=== PATIENT | female | born 1975 | race Caucasian/White ===

== ENCOUNTER 2018-02-09 16:59 | Inpatient (IN) | payer MEDICARE, OTHER ==
[2018-02-09] MEDS ORDERED: GELATIN SIZE 100 SPONGE ×2 (17:01→17:02)
[2018-02-09] MEDS ORDERED: THROMBIN 5000 UNIT VIAL (17:02)
[2018-02-09] MEDS ORDERED: HEPARIN 1000 UNITS/ML 10 ML INJ (17:02)
[2018-02-09] MEDS ORDERED: CEFAZOLIN 1 GM INJ (17:07)
[2018-02-09 17:49] LABS: ADD MAN DIFF? NO
[2018-02-09 17:52] LABS: BASOPHIL # 0.1 10^3/ul (0.0-0.1); BASOPHILS % 0.7 % (0.0-2.0); EOSINOPHILS # 0.2 10^3/ul (0.0-0.5); EOSINOPHILS % 2.9 % (0.0-7.0); HEMATOCRIT 29.6 % (37.0-47.0); HEMOGLOBIN 9.7 g/dl (12.0-16.0); LYMPHOCYTES % 36.7 % (15.0-51.0); MEAN CORPUSCULAR HEMOGLOBIN 25.2 pg (29.0-33.0); MEAN CORPUSCULAR HGB CONC 32.8 g/dl (32.0-37.0); MEAN CORPUSCULAR VOLUME 76.9 fl (82.0-101.0); MONOCYTE # 0.8 10^3/ul (0.3-0.9); MONOCYTES % 9.7 % (0.0-11.0); NEUTROPHILS % 49.8 % (39.0-77.0); PLATELET COUNT 326 10^3/UL (140-415); RED BLOOD COUNT 3.85 10^6/ul (4.20-5.40); RED CELL DISTRIBUTION WIDTH 16.6 % (11.5-14.5)
[2018-02-09 18:02] LABS: HOLD TRANSMISSIONS 1
[2018-02-09 18:13] LABS: INR 1.08; PROTIME 14.1 Sec (11.9-14.9); PT RATIO 1.1
[2018-02-09 18:14] LABS: PARTIAL THROMBOPLASTIN TIME 29.5 Sec (25.0-35.0)
[2018-02-09 18:23] LABS: ALANINE AMINOTRANSFERASE 20 IU/L (13-69); ALBUMIN 4.1 g/dl (3.3-4.9); ALBUMIN/GLOBULIN RATIO 1.32; ALKALINE PHOSPHATASE 72 IU/L (42-121); ANION GAP 12 (8-16); ASPARTATE AMINO TRANSFERASE 20 IU/L (15-46); BILIRUBIN,INDIRECT 0.3 mg/dl (0-1.1); BILIRUBIN,TOTAL 0.3 mg/dl (0.2-1.3); BLOOD UREA NITROGEN 14 mg/dl (7-20); CALCIUM 9.3 mg/dl (8.4-10.2); CARBON DIOXIDE 30 mmol/L (21-31); CHLORIDE 105 mmol/L (97-110); CREATININE 0.58 mg/dl (0.44-1.00); GLUCOSE 90 mg/dl (70-220); POTASSIUM 3.6 mmol/L (3.5-5.1); SODIUM 143 mmol/L (135-144); TOTAL PROTEIN 7.2 g/dl (6.1-8.1)
== END 2018-02-09 19:02 | disposition home or self-care (01) | DRG 552 ==
LOC: REC 16:59
DX: M51.26 Other intervertebral disc displacement, lumbar region (principal); Z53.09 Procedure and treatment not carried out because of other contraindication
CPT/HCPCS: 71045; 80053; 85025; 85610; 85730; 86850; 86870; 86900; 86901; 86902; 86920; 93005

== ENCOUNTER 2018-03-12 04:15 | Emergency (ER) | payer MEDICARE, OTHER | END 2018-03-12 06:30 | disposition home or self-care (01) | LOC: FTE 04:15 | DX: M79.604 Pain in right leg (principal); G89.29 Other chronic pain; F17.210 Nicotine dependence, cigarettes, uncomplicated | CPT/HCPCS: 93971; 99284-25 ==

== ENCOUNTER 2018-03-17 12:09 | Inpatient (IN) | payer MEDICARE, OTHER ==
[2018-03-17 13:21] LABS: ADD MAN DIFF? NO
[2018-03-17 13:25] LABS: BASOPHIL # 0.1 10^3/ul (0.0-0.1); BASOPHILS % 0.6 % (0.0-2.0); EOSINOPHILS # 0.3 10^3/ul (0.0-0.5); EOSINOPHILS % 2.5 % (0.0-7.0); HEMATOCRIT 31.4 % (37.0-47.0); HEMOGLOBIN 10.1 g/dl (12.0-16.0); LYMPHOCYTES # 3.4 10^3/ul (0.8-2.9); LYMPHOCYTES % 32.4 % (15.0-51.0); MEAN CORPUSCULAR HEMOGLOBIN 25.4 pg (29.0-33.0); MEAN CORPUSCULAR HGB CONC 32.2 g/dl (32.0-37.0); MEAN CORPUSCULAR VOLUME 78.9 fl (82.0-101.0); MONOCYTE # 0.6 10^3/ul (0.3-0.9); MONOCYTES % 5.9 % (0.0-11.0); NEUTROPHILS % 58.1 % (39.0-77.0); PLATELET COUNT 321 10^3/UL (140-415); RED BLOOD COUNT 3.98 10^6/ul (4.20-5.40); RED CELL DISTRIBUTION WIDTH 16.7 % (11.5-14.5)
[2018-03-17 13:25] LABS: WHITE BLOOD COUNT 10.3 10^3/ul (4.8-10.8)
[2018-03-17] MEDS ORDERED: MIDAZOLAM 1 MG/ML 2 ML INJ (13:25)
[2018-03-17] MEDS ORDERED: HEPARIN 1000 UNITS/ML 10 ML INJ ×2 (13:27→14:22)
[2018-03-17] MEDS ORDERED: SODIUM CL BACTERIOSTATIC 30 ML INJ (13:27)
[2018-03-17 13:42] LABS: ALANINE AMINOTRANSFERASE 20 IU/L (13-69); ALBUMIN 4.3 g/dl (3.3-4.9); ALKALINE PHOSPHATASE 78 IU/L (42-121); ANION GAP 17 (8-16); ASPARTATE AMINO TRANSFERASE 20 IU/L (15-46); BILIRUBIN,INDIRECT 0.3 mg/dl (0-1.1); BILIRUBIN,TOTAL 0.3 mg/dl (0.2-1.3); CARBON DIOXIDE 25 mmol/L (21-31); CHLORIDE 105 mmol/L (97-110); GLUCOSE 78 mg/dl (70-220); TOTAL PROTEIN 7.6 g/dl (6.1-8.1)
[2018-03-17 13:45] LABS: INR 1.03; PARTIAL THROMBOPLASTIN TIME 27.4 Sec (25.0-35.0); PROTIME 13.6 Sec (11.9-14.9); PT RATIO 1.1
[2018-03-17 13:51] LABS: BLOOD UREA NITROGEN 9 mg/dl (7-20); CREATININE 0.56 mg/dl (0.44-1.00); POTASSIUM 3.3 mmol/L (3.5-5.1); SODIUM 144 mmol/L (135-144)
[2018-03-17] MEDS ORDERED: THROMBIN 5000 UNIT VIAL ×3 (13:57→14:22)
[2018-03-17] MEDS ORDERED: GELATIN SIZE 100 SPONGE (13:57)
[2018-03-17] MEDS ORDERED: PHENYLephrine (100 MCG/ML) 5ML SYG (15:11)
[2018-03-17] MEDS: CEFAZOLIN 1 GM INJ (16:13)
[2018-03-17] MEDS: THROMBIN 5000 UNIT VIAL (16:14)
[2018-03-17] MEDS: DOCUSATE SODIUM 100 MG CAP PO ×2 (16:30→21:00)
[2018-03-17] MEDS ORDERED: HYDROCODONE/APAP (5/325) TAB PO (16:30)
[2018-03-17] MEDS ORDERED: NACL 0.9% 3 ML SYG IV (16:30)
[2018-03-17] MEDS ORDERED: NALOXONE (0.4 MG/ML) INJ IV (16:30)
[2018-03-17] MEDS ORDERED: HYDROmorphONE 2 MG/ML SYG (16:57)
[2018-03-17] MEDS ORDERED: LIDOCAINE 2% (SDV) 5 ML INJ (17:07)
[2018-03-17] MEDS ORDERED: ROCURONIUM 50 MG INJ (17:07)
[2018-03-17] MEDS ORDERED: GLYCOPYRROLATE 0.4 MG INJ (17:07)
[2018-03-17] MEDS ORDERED: PROPOFOL 20 ML (17:07)
[2018-03-17] MEDS ORDERED: NEOSTIGMINE 3 MG/3 ML SYRINGE (17:07)
[2018-03-17] MEDS ORDERED: CEFAZOLIN 1 GM INJ (17:08)
[2018-03-17] MEDS: hydrALAzine 20 MG INJ IV ×3 (18:00→23:50)
[2018-03-17] MEDS: CEFAZOLIN 1 GM/50 ML (PMX) 50 ML IVPB ×2 (18:18→23:02)
[2018-03-17] MEDS: NS + KCL 20 MEQ 1,000 ML IV (18:34)
[2018-03-17] MEDS ORDERED: morphine 1 MG/ML 30 ML (PCA) IV (20:30)
[2018-03-17] MEDS: HYDROmorphONE 1 MG/ML SYG IV (23:07)
[2018-03-18] MEDS: ONDANSETRON 4 MG INJ IV ×2 (00:54→16:56)
[2018-03-18] MEDS: NS + KCL 20 MEQ 1,000 ML IV ×3 (04:00→23:00)
[2018-03-18] MEDS: hydrALAzine 20 MG INJ IV ×3 (05:01→18:32)
[2018-03-18] MEDS: CEFAZOLIN 1 GM/50 ML (PMX) 50 ML IVPB ×2 (05:02→12:07)
[2018-03-18] MEDS: HYDROmorphONE 1 MG/ML SYG IV ×5 (05:02→21:39)
[2018-03-18 05:49] LABS: HEMOGLOBIN 9.7 g/dl (12.0-16.0)
[2018-03-18 06:29] LABS: ANION GAP 14 (8-16); BLOOD UREA NITROGEN 4 mg/dl (7-20); CALCIUM 8.4 mg/dl (8.4-10.2); CARBON DIOXIDE 21 mmol/L (21-31); CHLORIDE 105 mmol/L (97-110); CREATININE 0.39 mg/dl (0.44-1.00); GLUCOSE 86 mg/dl (70-220); POTASSIUM 3.7 mmol/L (3.5-5.1); SODIUM 136 mmol/L (135-144)
[2018-03-18] MEDS: DOCUSATE SODIUM 100 MG CAP PO ×2 (09:34→21:39)
[2018-03-18] MEDS: SUMATRIPTAN 50 MG TAB PO (12:05)
[2018-03-19] MEDS: HYDROmorphONE 1 MG/ML SYG IV ×5 (01:30→18:18)
[2018-03-19] MEDS: SUMATRIPTAN 50 MG TAB PO ×2 (01:30→16:32)
[2018-03-19] MEDS: NS + KCL 20 MEQ 1,000 ML IV (01:33)
[2018-03-19] MEDS: hydrALAzine 20 MG INJ IV ×4 (03:28→18:00)
[2018-03-19] MEDS: ONDANSETRON 4 MG INJ IV ×3 (05:19→23:18)
[2018-03-19] MEDS: DOCUSATE SODIUM 100 MG CAP PO ×2 (08:54→20:51)
[2018-03-19] MEDS: ACETAMINOPHEN 500 MG TAB PO (23:18)
[2018-03-20] MEDS: HYDROmorphONE 1 MG/ML SYG IV ×4 (00:30→15:08)
[2018-03-20] MEDS: AL HYDROX/MG HYDROX/SIMETH 30 ML CUP PO (05:46)
[2018-03-20] MEDS: ONDANSETRON 4 MG INJ IV (05:50)
[2018-03-20] MEDS: hydrALAzine 20 MG INJ IV ×2 (05:52)
[2018-03-20] MEDS: DOCUSATE SODIUM 100 MG CAP PO ×2 (08:56→13:42)
[2018-03-20] MEDS: OXYCODONE/ACETAMINOPHEN (10/325) TAB PO ×2 (10:36→18:09)
[2018-03-20] MEDS: NICOTINE (14 MG/24 HR) PATCH TRANSDERM (13:41)
[2018-03-20 17:15] LABS: ADD MAN DIFF? NO
[2018-03-20 17:16] LABS: WHITE BLOOD COUNT 13.8 10^3/ul (4.8-10.8)
[2018-03-20 17:16] LABS: BASOPHILS % 0.3 % (0.0-2.0); EOSINOPHILS # 0.4 10^3/ul (0.0-0.5); EOSINOPHILS % 2.5 % (0.0-7.0); HEMATOCRIT 29.2 % (37.0-47.0); HEMOGLOBIN 9.3 g/dl (12.0-16.0); LYMPHOCYTES % 14.2 % (15.0-51.0); MEAN CORPUSCULAR HEMOGLOBIN 25.5 pg (29.0-33.0); MEAN CORPUSCULAR HGB CONC 31.8 g/dl (32.0-37.0); MEAN PLATELET VOLUME 8.9 fl (7.4-10.4); MONOCYTE # 1.4 10^3/ul (0.3-0.9); MONOCYTES % 10.3 % (0.0-11.0); NEUTROPHIL # 9.9 10^3/ul (1.6-7.5); PLATELET COUNT 263 10^3/UL (140-415); RED BLOOD COUNT 3.65 10^6/ul (4.20-5.40); RED CELL DISTRIBUTION WIDTH 16.6 % (11.5-14.5)
[2018-03-20 17:45] LABS: ANION GAP 13 (8-16); BLOOD UREA NITROGEN 9 mg/dl (7-20); CALCIUM 8.8 mg/dl (8.4-10.2); CARBON DIOXIDE 29 mmol/L (21-31); CHLORIDE 96 mmol/L (97-110); CREATININE 0.56 mg/dl (0.44-1.00); GLUCOSE 98 mg/dl (70-220); POTASSIUM 3.5 mmol/L (3.5-5.1); SODIUM 134 mmol/L (135-144)
[2018-03-20] MEDS: SUMATRIPTAN 50 MG TAB PO (18:09)
== END 2018-03-20 22:40 | disposition home or self-care (01) | DRG 459 ==
LOC: REC 12:09 → MS1 03-18 17:32 → ICU 17:34
PROC: 0SG30A0 Fusion of Lumbosacral Joint with Interbody Fusion Device, Anterior Approach, Anterior Column, Open Approach (ICD-10-PCS; principal; 2018-03-17 13:00)
PROC: 0SB40ZZ Excision of Lumbosacral Disc, Open Approach (ICD-10-PCS; 2018-03-17 13:00)
PROC: 0SP30AZ Removal of Interbody Fusion Device from Lumbosacral Joint, Open Approach (ICD-10-PCS; 2018-03-17 13:00)
DX: T84.226A Displacement of internal fixation device of vertebrae, initial encounter (principal); S35.515A Injury of left iliac vein, initial encounter; I97.51 Accidental puncture and laceration of a circulatory system organ or structure during a circulatory system procedure; T84.84XA Pain due to internal orthopedic prosthetic devices, implants and grafts, initial encounter; F15.10 Other stimulant abuse, uncomplicated; D64.9 Anemia, unspecified; E87.6 Hypokalemia; G43.909 Migraine, unspecified, not intractable, without status migrainosus; Z72.0 Tobacco use; Z91.81 History of falling; M54.17 Radiculopathy, lumbosacral region; I10 Essential (primary) hypertension; Z98.1 Arthrodesis status
CPT/HCPCS: 71045; 72114; 72131; 80048; 80053; 85014; 85018; 85025; 85610; 85730; 86850; 86870; 86900; 86901; 86920; 88300; 88304; 93005; 97110; 97116; 97161; 97530